=== PATIENT | female | born 1945 | race Caucasian/White ===

== ENCOUNTER 2018-08-28 18:08 | Emergency (ER) | payer MEDICARE ==
[~2018-08-28] VITALS: Ht 180.3 cm; Wt 74.8 kg
[~2018-08-28 18:08] MED LIST: LEVO25TA11
--- NOTE | 2018-08-28 19:00 | NUR ---
patient presented to the ER c/o pink eye, on room air, breathing evenly and unlabored. kept comfortable, will continue to monitor accordingly.
[2018-08-28] MEDS ORDERED: FLUORESCEIN SODIUM OPHTH 1 EA STRIP ONE (19:03)
[2018-08-28] MEDS ORDERED: TETRACAINE HCL/PF 0.5% UD 2 ML BOTTLE ONE (19:04)
--- NOTE | 2018-08-28 19:11 | NUR ---
LEFT EYE 20/25 RIGHT EYE 20/25 BOTH 20/25
[2018-08-28 19:12] VITALS: BP 134/88
== END 2018-08-28 20:06 | disposition home or self-care (01) ==
LOC: ER 18:08
DX: H10.89 Other conjunctivitis (principal); E03.9 Hypothyroidism, unspecified; F10.10 Alcohol abuse, uncomplicated; Y90.9 Presence of alcohol in blood, level not specified; Z98.890 Other specified postprocedural states; Z98.49 Cataract extraction status, unspecified eye